=== PATIENT | male | born 1980 | race Caucasian/White ===

== ENCOUNTER → 2017-01-02 | Outpatient (CLI) | payer OTHER ==
--- NOTE | 2017-01-02 12:51 | DI ---
Indication: ITS.REASON: DIAGNOSTIC TESTING PROCEDURE: CERVICAL SPINE 4 OR 5 VIEWS: Encounter: Initial Comparison: None Findings: Five views of the cervical spine including oblique views demonstrates no evidence of fracture or subluxation with minimal loss of the typical cervical lordosis and focal degenerative disc disease at C5-C6 where there is mild posterior endplate osteophyte formation. However, no significant foraminal encroachment at C5-C6 and the spinal canal seems grossly patent. Odontoid process intact. Impression: 1. Negative for acute traumatic variation. 2. Focal mild degenerative disc disease at C5-C6 .
== END ==
LOC: IMA 12:10
DX: Z02.9 Encounter for administrative examinations, unspecified (principal); M50.322 Other cervical disc degeneration at C5-C6 level